=== PATIENT | female | born 1940 | race African-American/Black ===

== ENCOUNTER → 2017-04-21 | Outpatient (CLI) | payer OTHER ==
--- NOTE | 2017-04-21 15:39 | KCIC ---
EXAMINATION: Magnetic resonance imaging (MRI) of the lumbar spine without contrast HISTORY: Left lumbar radiculopathy. TECHNIQUE: Multiplanar multi-weighted MRI of the lumbar spine was performed without intravenous contrast using the standard lumbar spine protocol. Contrast information: None administered. COMPARISON: None available. FINDINGS: There is levoconvex scoliosis of the lumbar spine with apex levocurvature at L2-L3. There is low T1 and T2 signal intensity involving the marrow with patchy distribution throughout the visualized spine and pelvis. There is minimal retrolisthesis of L2 on L3. There are no compression fractures. The conus medullaris terminates at the level of L1. The distal spinal cord signal intensity is normal. There is disc desiccation at all levels of the lumbar spine sparing L5-S1. Limited views of the abdomen and pelvis show no soft tissue abnormality. The aorta is normal. T12-L1: There is minimal disc bulge. Mild facet arthropathy. There is no neural foraminal or spinal canal stenosis. L1-L2: There is a diffuse disc bulge. There is mild facet arthropathy. There is moderate right neuroforaminal stenosis. There is mild spinal canal stenosis. L2-L3: There is diffuse disc bulge. There is moderate facet arthropathy. There is severe right and moderate left neuroforaminal stenosis. There is mild spinal canal stenosis. L3-L4: There is diffuse disc bulge . There is moderate facet arthropathy with ligamentum flavum infolding. There is moderate neuroforaminal stenosis. There is moderate spinal canal stenosis. L4-L5: There is diffuse disc bulge with left central disc extrusion extending into the left foraminal zone. There is moderate to severe facet arthropathy with ligamentum flavum infolding. There is severe left and moderate right neuroforaminal stenosis. There is mild to moderate spinal canal stenosis. L5-S1: Minimal disc bulge. There is moderate to severe facet arthropathy. There is mild left neuroforaminal stenosis. There is no spinal canal stenosis. IMPRESSION: 1. Heterogeneous marrow signal intensity with patchy areas of low T1 and T2 signal suspicious for a marrow replacing process such as metastasis versus multiple myeloma. No pathologic fracture is identified. 2. Levoconvex scoliosis with moderate degenerative changes of the lumbar spine, most prominent at L4-L5 with disc bulge and left central disc extrusion with moderate to severe facet arthropathy and ligamentum flavum infolding resulting in severe left neuroforaminal stenosis and qkgs-fr-[id number] spinal canal stenosis. 3. Disc bulge with moderate facet arthropathy and ligamentum flavum infolding resulting in moderate neuroforaminal stenosis and moderate spinal canal stenosis at L3-L4. Critical results were discussed with [place] at Dr. Singh's office on 04/21/2017 at 3:[address] Robison. Electronically signed by: Dona Robison MD (04/21/2017 3:36 PM) [id number]
== END | disposition home or self-care (01) ==
LOC: KCIC MRI 14:14
PROVIDERS: ATTEND Orthopaedic Surgery
DX: M51.16 Intervertebral disc disorders with radiculopathy, lumbar region (principal); M48.061 Spinal stenosis, lumbar region without neurogenic claudication; M41.86 Other forms of scoliosis, lumbar region
CPT/HCPCS: 72148

== ENCOUNTER → 2019-01-03 | Outpatient (CLI) | payer MEDICARE ==
--- NOTE | 2019-01-03 12:55 | KCIC ---
Limited abdominal ultrasound 01/03/2019 INDICATION: Generalized abdominal pain COMPARISON STUDY: CT of the abdomen and pelvis May 04, 2011. Discussion: Per technologist exam limited by patient body habitus. Ultrasound evaluation of the abdomen was performed. Static images are submitted to PACS. The pancreas is poorly visualized. The liver is diffusely hyperechoic. The liver is normal in size measuring 16 cm longitudinally. Portions of the liver are obscured. No intrahepatic biliary dilatation is seen. The common bile duct is normal diameter measuring 2-3 mm. The gallbladder demonstrates no evidence of wall thickening, stones, or sludge. No pericholecystic fluid is seen. The right kidney is normal in appearance measuring 10.2 cm longitudinally. Visualized portions of the aorta and IVC are grossly unremarkable. Left kidney is normal in appearance measuring 10.4 cm longitudinally. The spleen is poorly visualized. IMPRESSION: 1. No sonographic evidence of acute intra-abdominal abnormality is identified 2. Possible hepatic steatosis 3. Poorly visualized spleen and pancreas. Electronically signed by: Panchito Scott MD (01/03/2019 12:52 PM) [id number]
== END | disposition home or self-care (01) ==
LOC: KCIC US 08:59
PROVIDERS: ATTEND Family Medicine
DX: R10.84 Generalized abdominal pain (principal)
CPT/HCPCS: 76700

== ENCOUNTER → 2020-12-28 | Outpatient (CLI) | payer MEDICARE ==
[2020-12-29 13:13] LABS: ALPHA 1 0.4 g/dL (0.0-0.4); ALPHA 2 0.9 g/dL (0.4-1.0); BETA 1.4 g/dL (0.7-1.3); GAMMA 1.8 g/dL (0.4-1.8); PROTEIN TOTAL 7.6 g/dL (6.0-8.5); SPEP AG RATIO 0.7 (0.7-1.7)
[2020-12-29 14:11] LABS: COMMENT IMMUNOFIX SERUM Note: (.); IMMUNOGLOBULIN A 597 mg/dL (64-422); IMMUNOGLOBULIN G 1735 mg/dL (586-1602); IMMUNOGLOBULIN M 102 mg/dL (26-217)
[2020-12-29 17:11] LABS: KAPPA FREE 51.9 mg/L (3.3-19.4); KAPPA LAMBDA RATIO 1.11 (0.26-1.65); LAMBDA FREE 46.6 mg/L (5.7-26.3)
== END ==
LOC: ONCLAB 13:34
PROVIDERS: ATTEND Internal Medicine Hematology & Oncology
DX: D50.0 Iron deficiency anemia secondary to blood loss (chronic) (principal)
CPT/HCPCS: 36415; 82525; 82607; 82746; 82784; 83520; 84165; 85045; 86334

== ENCOUNTER → 2021-01-11 | Outpatient (CLI) | payer MEDICARE ==
[2021-01-11 09:25] LABS: BASO % 0 % (0-3); EOS % 1 % (0-3); HEMATOCRIT 26.3 % (36.0-47.0); HEMOGLOBIN 7.9 g/dL (12.0-15.5); LYMPH # 0.8 x10^3/uL (1.0-4.8); LYMPH % 15 % (24-48); MEAN CORPUSCULAR HEMOGLOBIN 25 pg (25-35); MEAN CORPUSCULAR HGB CONC 30 g/dL (31-37); MEAN CORPUSCULAR VOLUME 82 fL (79-100); MONO % 20 % (0-9); NEUT # 3.4 x10^3/uL (1.8-7.7); NEUT % 64 % (31-73); PLATELET COUNT 526 x10^3/uL (140-400); RED BLOOD COUNT 3.21 x10^6/uL (3.50-5.40); WHITE BLOOD COUNT 5.3 x10^3/uL (4.0-11.0)
[2021-01-11 09:35] LABS: CALCIUM 8.7 mg/dL (8.5-10.1); CREATININE 0.6 mg/dL (0.6-1.0); POTASSIUM 3.2 mmol/L (3.5-5.1)
== END ==
LOC: ONCLAB 08:45
PROVIDERS: ATTEND Physician Assistant
DX: D50.0 Iron deficiency anemia secondary to blood loss (chronic) (principal)
CPT/HCPCS: 36415; 80048; 85025

== ENCOUNTER → 2021-01-14 | Outpatient (CLI) | payer MEDICARE ==
--- NOTE | 2021-01-14 12:51 | CARD ---
MR#: [id number] Date of Study: 01/14/2021 Ordering Physician: EZIO JACOBSON, Referring Physician: EZIO JACOBSON, Tech: Magda Lopez, [facility] APPROVED REPORT EXAM: Two-dimensional and M-mode echocardiogram with Doppler and color Doppler. Other Information Quality : AverageHR: 91bpm INDICATION Dyspnea RISK FACTORS Hypertension Hyperlipidemia 2D DIMENSIONS RVDd3.2 (2.9-3.5cm)Left Atrium(2D)3.1 (1.6-4.0cm) IVSd1.2 (0.7-1.1cm)Aortic Root(2D)2.9 (2.0-3.7cm) LVDd4.7 (3.9-5.9cm)LVOT Diameter2.0 (1.8-2.4cm) PWd1.3 (0.7-1.1cm)LVDs2.8 (2.5-4.0cm) FS (%) 39.9 %SV70.5 ml LVEF(%)60.6 (>50%) Aortic Valve AoV Peak Kristopher.146.7cm/sAoV VTI22.3cm AO Peak GR.8.6mmHgLVOT Peak Kristopher.99.7cm/s LVOT VTI 16.35cmAO Mean GR.4mmHg MIKO (VMAX)1.65nr5LJS (VTI)2.35cm2 Mitral Valve MV E Dqdnskqg04.5cm/sMV DECEL FPSV010mg MV A Sfkphoyx86.4cm/sMV SGJ71mx E/A Ratio0.8MVA (PHT)2.80cm2 TDI E/Lateral E'6.8E/Medial E'7.8 Pulmonary Valve PV Peak Oqgvuuar06.2cm/sPV Peak Grad.3mmHg Tricuspid Valve TR P. Tmicrbrg675ho/sRAP JQIYKPNO0mwVv TR Peak Gr.84ioVtKGDN47njSv Pulmonary Vein S1 Jholczfg90.1cm/sD2 Quygtxtc34.5cm/s PVa [id number] LEFT VENTRICLE The left ventricle is normal size. There is mild to moderate concentric left ventricular hypertrophy. The left ventricular systolic function is normal. The Ejection Fraction is 50-55%. There is normal L V segmental wall motion. Transmitral Doppler flow pattern is Grade I-abnormal relaxation pattern. RIGHT VENTRICLE The right ventricle is normal size. There is normal right ventricular wall thickness. The right ventr icular systolic function is normal. ATRIA The left atrium size is normal. The right atrium size is normal. The interatrial septum is intact wit h no evidence for an atrial septal defect or patent foramen ovale as noted on 2-D or Doppler imaging. AORTIC VALVE The aortic valve is normal in structure and function. Doppler and Color Flow revealed trace aortic re gurgitation. There is no significant aortic valvular stenosis. Calculated aortic valve area is 1.95 c m2 with maximum pressure gradient of 10 mmHg and mean pressure gradient of 5 mmHg. MITRAL VALVE The mitral valve is normal in structure and function. There is no evidence of mitral valve prolapse. There is no mitral valve stenosis. Doppler and Color-flow revealed trace mitral regurgitation. TRICUSPID VALVE The tricuspid valve is normal in structure and function. Doppler and Color Flow revealed trace tricus pid regurgitation with an estimated PAP of 31 mmHg. There is no tricuspid valve stenosis. PULMONIC VALVE The pulmonary valve is normal in structure and function. Doppler and Color Flow revealed trace pulmon ic valvular regurgitation. GREAT VESSELS The aortic root is normal in size. The ascending aorta is normal in size. The IVC is normal in size a nd collapses >50% with inspiration. PERICARDIAL EFFUSION There is no evidence of significant pericardial effusion. Critical Notification Critical Value: No <Conclusion> The left ventricular systolic function is normal. The Ejection Fraction is 50-55%. There is normal LV segmental wall motion. Transmitral Doppler flow pattern is Grade I-abnormal relaxation pattern. Trace mitral regurgitation. Trace tricuspid regurgitation with an estimated PAP of 31 mmHg. There is no evidence of significant pericardial effusion. Signed by : Brian Woodward, Electronically Approved : 01/14/2021 12:51:09
== END ==
LOC: ECHO 08:54
PROVIDERS: ATTEND Internal Medicine Cardiovascular Disease
DX: I51.7 Cardiomegaly (principal)
CPT/HCPCS: 93306

== ENCOUNTER → 2021-01-25 | Outpatient (CLI) | payer MEDICARE ==
[2021-01-25 08:57] LABS: BASO % 1 % (0-3); EOS % 1 % (0-3); HEMATOCRIT 29.3 % (36.0-47.0); LYMPH # 1.6 x10^3/uL (1.0-4.8); LYMPH % 33 % (24-48); MEAN CORPUSCULAR HEMOGLOBIN 26 pg (25-35); MEAN CORPUSCULAR HGB CONC 31 g/dL (31-37); MEAN CORPUSCULAR VOLUME 84 fL (79-100); MONO # 0.7 x10^3/uL (0.0-1.1); MONO % 14 % (0-9); NEUT # 2.5 x10^3/uL (1.8-7.7); NEUT % 51 % (31-73); PLATELET COUNT 458 x10^3/uL (140-400); RED CELL DISTRIBUTION WIDTH 25.7 % (11.5-14.5); WHITE BLOOD COUNT 4.9 x10^3/uL (4.0-11.0)
[2021-01-25 10:47] LABS: PLT ESTIMATE INCREASED (ADEQUATE)
[2021-01-25 10:48] LABS: ANISOCYTOSIS MARKED; POLYCHROMASIA PRESENT; TARGET CELLS PRESENT
[2021-01-25 10:54] LABS: OVALOCYTES FEW; TEAR DROP CELLS OCC
== END ==
LOC: ONCLAB 08:37
PROVIDERS: ATTEND Internal Medicine Hematology & Oncology
DX: D50.0 Iron deficiency anemia secondary to blood loss (chronic) (principal)
CPT/HCPCS: 36415; 82728; 83540; 83550; 85025

== ENCOUNTER → 2021-01-28 | Outpatient (CLI) | payer MEDICARE ==
[2021-01-28 09:19] LABS: FECAL OB PT NEGATIVE (NEG)
[2021-01-28 09:19] LABS: FECAL OB PT NEGATIVE (NEG)
[2021-01-28 09:20] LABS: FECAL OB PT NEGATIVE (NEG)
== END ==
LOC: ONCLAB 08:35
PROVIDERS: ATTEND Physician Assistant
DX: D50.0 Iron deficiency anemia secondary to blood loss (chronic) (principal)
CPT/HCPCS: 82274

== ENCOUNTER → 2021-03-01 | Outpatient (CLI) | payer MEDICARE ==
[2021-03-01 09:25] LABS: BASO % 1 % (0-3); EOS % 1 % (0-3); HEMATOCRIT 27.8 % (36.0-47.0); HEMOGLOBIN 8.6 g/dL (12.0-15.5); LYMPH # 1.8 x10^3/uL (1.0-4.8); LYMPH % 37 % (24-48); MEAN CORPUSCULAR HEMOGLOBIN 25 pg (25-35); MEAN CORPUSCULAR HGB CONC 31 g/dL (31-37); MEAN CORPUSCULAR VOLUME 81 fL (79-100); MONO # 0.7 x10^3/uL (0.0-1.1); MONO % 15 % (0-9); NEUT # 2.3 x10^3/uL (1.8-7.7); NEUT % 47 % (31-73); PLATELET COUNT 501 x10^3/uL (140-400); RED BLOOD COUNT 3.43 x10^6/uL (3.50-5.40); RED CELL DISTRIBUTION WIDTH 22.3 % (11.5-14.5); WHITE BLOOD COUNT 4.9 x10^3/uL (4.0-11.0)
[2021-03-01 12:17] LABS: % ATYL 3 % (0-0); % BANDS 1 % (0-9); % LYMPHS 19 % (24-48); % MONOS 12 % (0-10); % SEGS 65 % (35-66); ANISOCYTOSIS PRESENT; HYPOCHROMIA PRESENT; MICROCYTOSIS PRESENT; PLT ESTIMATE INCREASED (ADEQUATE); POLYCHROMASIA PRESENT; TARGET CELLS PRESENT
== END ==
LOC: ONCLAB 08:41
PROVIDERS: ATTEND Physician Assistant
DX: D50.0 Iron deficiency anemia secondary to blood loss (chronic) (principal); E03.9 Hypothyroidism, unspecified
CPT/HCPCS: 36415; 82728; 83540; 83550; 84443; 85007; 85025

== ENCOUNTER → 2021-03-11 | Outpatient (CLI) | payer MEDICARE ==
[2021-03-11 11:28] LABS: BASO # 0.1 x10^3/uL (0.0-0.2); BASO % 1 % (0-3); EOS # 0.1 x10^3/uL (0.0-0.7); EOS % 1 % (0-3); HEMATOCRIT 29.3 % (36.0-47.0); HEMOGLOBIN 8.9 g/dL (12.0-15.5); LYMPH # 1.5 x10^3/uL (1.0-4.8); LYMPH % 30 % (24-48); MEAN CORPUSCULAR HEMOGLOBIN 25 pg (25-35); MEAN CORPUSCULAR HGB CONC 30 g/dL (31-37); MEAN CORPUSCULAR VOLUME 82 fL (79-100); MONO # 0.8 x10^3/uL (0.0-1.1); MONO % 17 % (0-9); NEUT # 2.4 x10^3/uL (1.8-7.7); NEUT % 51 % (31-73); PLATELET COUNT 531 x10^3/uL (140-400); RED CELL DISTRIBUTION WIDTH 21.8 % (11.5-14.5); WHITE BLOOD COUNT 4.8 x10^3/uL (4.0-11.0)
[2021-03-11 15:03] LABS: % ATYL 1 % (0-0); % BANDS 2 % (0-9); % BASOS 3 % (0-3); % EOS 1 % (0-5); % LYMPHS 21 % (24-48); % MONOS 14 % (0-10); % SEGS 58 % (35-66)
[2021-03-11 15:05] LABS: ANISOCYTOSIS MOD; PLT ESTIMATE INCREASED (ADEQUATE); POLYCHROMASIA SLIGHT
[2021-03-11 15:06] LABS: TARGET CELLS MOD
== END ==
LOC: ONCLAB 09:59
PROVIDERS: ATTEND Physician Assistant
DX: D50.0 Iron deficiency anemia secondary to blood loss (chronic) (principal)
CPT/HCPCS: 36415; 82728; 83540; 83550; 85007; 85025

== ENCOUNTER → 2021-03-29 | Outpatient (CLI) | payer MEDICARE ==
[2021-03-29 08:52] LABS: BASO % 1 % (0-3); EOS % 1 % (0-3); HEMOGLOBIN 9.9 g/dL (12.0-15.5); LYMPH # 1.2 x10^3/uL (1.0-4.8); LYMPH % 25 % (24-48); MEAN CORPUSCULAR HEMOGLOBIN 27 pg (25-35); MEAN CORPUSCULAR HGB CONC 32 g/dL (31-37); MEAN CORPUSCULAR VOLUME 85 fL (79-100); MONO # 0.8 x10^3/uL (0.0-1.1); MONO % 17 % (0-9); NEUT # 2.6 x10^3/uL (1.8-7.7); NEUT % 56 % (31-73); PLATELET COUNT 419 x10^3/uL (140-400); RED BLOOD COUNT 3.63 x10^6/uL (3.50-5.40); RED CELL DISTRIBUTION WIDTH 24.9 % (11.5-14.5); WHITE BLOOD COUNT 4.7 x10^3/uL (4.0-11.0)
[2021-03-29 10:20] LABS: PLT ESTIMATE INCREASED (ADEQUATE)
[2021-03-29 10:21] LABS: ANISOCYTOSIS MOD; TARGET CELLS PRESENT
== END ==
LOC: ONCLAB 08:33
PROVIDERS: ATTEND Physician Assistant
DX: D50.0 Iron deficiency anemia secondary to blood loss (chronic) (principal)
CPT/HCPCS: 36415; 82728; 83540; 83550; 85025

== ENCOUNTER → 2021-04-16 | Outpatient (CLI) | payer MEDICARE ==
[2021-04-16 11:00] LABS: BASO # 0.1 x10^3/uL (0.0-0.2); BASO % 1 % (0-3); EOS # 0.1 x10^3/uL (0.0-0.7); EOS % 1 % (0-3); HEMATOCRIT 33.1 % (36.0-47.0); HEMOGLOBIN 10.4 g/dL (12.0-15.5); LYMPH # 1.4 x10^3/uL (1.0-4.8); LYMPH % 29 % (24-48); MEAN CORPUSCULAR HEMOGLOBIN 28 pg (25-35); MEAN CORPUSCULAR HGB CONC 31 g/dL (31-37); MEAN CORPUSCULAR VOLUME 88 fL (79-100); MONO # 0.8 x10^3/uL (0.0-1.1); MONO % 16 % (0-9); NEUT # 2.6 x10^3/uL (1.8-7.7); NEUT % 53 % (31-73); PLATELET COUNT 373 x10^3/uL (140-400); RED BLOOD COUNT 3.75 x10^6/uL (3.50-5.40); RED CELL DISTRIBUTION WIDTH 23.4 % (11.5-14.5)
[2021-04-16 12:21] LABS: WHITE BLOOD COUNT 4.8 x10^3/uL (4.0-11.0)
== END ==
LOC: ONCLAB 09:51
PROVIDERS: ATTEND Internal Medicine Hematology & Oncology
DX: D50.0 Iron deficiency anemia secondary to blood loss (chronic) (principal)
CPT/HCPCS: 36415; 82728; 83540; 83550; 85025

== ENCOUNTER → 2021-11-19 | Outpatient (CLI) | payer MEDICARE ==
[2021-11-19 09:29] LABS: BASO % 1 % (0-3); EOS # 0.1 x10^3/uL (0.0-0.7); EOS % 2 % (0-3); LYMPH % 49 % (24-48); MEAN CORPUSCULAR HEMOGLOBIN 23 pg (25-35); MEAN CORPUSCULAR HGB CONC 29 g/dL (31-37); MEAN CORPUSCULAR VOLUME 78 fL (79-100); MONO # 0.4 x10^3/uL (0.0-1.1); MONO % 11 % (0-9); NEUT # 1.5 x10^3/uL (1.8-7.7); NEUT % 37 % (31-73); PLATELET COUNT 442 x10^3/uL (140-400); RED BLOOD COUNT 3.43 x10^6/uL (3.50-5.40); RED CELL DISTRIBUTION WIDTH 18.4 % (11.5-14.5); WHITE BLOOD COUNT 4.1 x10^3/uL (4.0-11.0)
[2021-11-19 09:33] LABS: HEMATOCRIT 26.5 % (36.0-47.0); HEMOGLOBIN 7.9 g/dL (12.0-15.5)
[2021-11-19 10:26] LABS: ANISOCYTOSIS SLIGHT; PLT ESTIMATE INCREASED (ADEQUATE)
== END ==
LOC: ONCLAB 08:58
PROVIDERS: ATTEND Internal Medicine Hematology & Oncology
DX: D50.0 Iron deficiency anemia secondary to blood loss (chronic) (principal)
CPT/HCPCS: 36415; 82728; 83540; 83550; 85025

== ENCOUNTER → 2021-11-25 | Outpatient (CLI) | payer MEDICARE ==
[2021-11-25 12:02] LABS: CALCIUM 9.1 mg/dL (8.5-10.1); CREATININE 0.8 mg/dL (0.6-1.0); GFR 83.7; POTASSIUM 4.6 mmol/L (3.5-5.1)
[2021-11-25 12:05] LABS: BASO % 1 % (0-3); EOS # 0.1 x10^3/uL (0.0-0.7); EOS % 2 % (0-3); HEMATOCRIT 25.9 % (36.0-47.0); HEMOGLOBIN 7.6 g/dL (12.0-15.5); LYMPH # 1.7 x10^3/uL (1.0-4.8); LYMPH % 41 % (24-48); MEAN CORPUSCULAR HEMOGLOBIN 23 pg (25-35); MEAN CORPUSCULAR HGB CONC 30 g/dL (31-37); MEAN CORPUSCULAR VOLUME 78 fL (79-100); MONO # 0.6 x10^3/uL (0.0-1.1); MONO % 16 % (0-9); NEUT # 1.6 x10^3/uL (1.8-7.7); NEUT % 40 % (31-73); PLATELET COUNT 414 x10^3/uL (140-400); RED BLOOD COUNT 3.32 x10^6/uL (3.50-5.40); RED CELL DISTRIBUTION WIDTH 18.6 % (11.5-14.5)
[2021-11-25 12:13] LABS: ALBUMIN 3.3 g/dL (3.4-5.0); ALBUMIN/GLOBULIN RATIO 0.6 (1.0-1.7); TOTAL BILIRUBIN 0.2 mg/dL (0.2-1.0); TOTAL PROTEIN 8.4 g/dL (6.4-8.2)
== END ==
LOC: ONCLAB 10:24
PROVIDERS: ATTEND Internal Medicine Hematology & Oncology
DX: D50.0 Iron deficiency anemia secondary to blood loss (chronic) (principal)
CPT/HCPCS: 36415; 80053; 82728; 83540; 83550; 85025

== ENCOUNTER → 2021-12-10 | Outpatient (CLI) | payer MEDICARE ==
[2021-12-10 11:56] LABS: BASO % 1 % (0-3); EOS # 0.2 x10^3/uL (0.0-0.7); EOS % 4 % (0-3); HEMATOCRIT 28.7 % (36.0-47.0); HEMOGLOBIN 8.8 g/dL (12.0-15.5); LYMPH # 1.3 x10^3/uL (1.0-4.8); LYMPH % 31 % (24-48); MEAN CORPUSCULAR HEMOGLOBIN 27 pg (25-35); MEAN CORPUSCULAR HGB CONC 31 g/dL (31-37); MEAN CORPUSCULAR VOLUME 90 fL (79-100); MONO # 0.6 x10^3/uL (0.0-1.1); MONO % 14 % (0-9); NEUT # 2.1 x10^3/uL (1.8-7.7); NEUT % 51 % (31-73); PLATELET COUNT 316 x10^3/uL (140-400); RED BLOOD COUNT 3.21 x10^6/uL (3.50-5.40); RED CELL DISTRIBUTION WIDTH 32.5 % (11.5-14.5); WHITE BLOOD COUNT 4.1 x10^3/uL (4.0-11.0)
[2021-12-10 12:06] LABS: CALCIUM 9.4 mg/dL (8.5-10.1); CREATININE 0.9 mg/dL (0.6-1.0); GFR 73.1
[2021-12-10 12:24] LABS: ALBUMIN 3.6 g/dL (3.4-5.0); ALBUMIN/GLOBULIN RATIO 0.8 (1.0-1.7); TOTAL BILIRUBIN 0.4 mg/dL (0.2-1.0); TOTAL PROTEIN 8.2 g/dL (6.4-8.2)
[2021-12-10 13:03] LABS: PLT ESTIMATE ADEQUATE (ADEQUATE)
[2021-12-10 13:04] LABS: ANISOCYTOSIS MARKED
== END ==
LOC: ONCLAB 11:21
PROVIDERS: ATTEND Internal Medicine Hematology & Oncology
DX: D50.0 Iron deficiency anemia secondary to blood loss (chronic) (principal)
CPT/HCPCS: 36415; 80053; 82728; 83540; 83550; 85025